=== PATIENT | male | born 1955 | race Caucasian/White ===

== ENCOUNTER 2018-07-01 09:35 | Emergency (ER) | payer OTHER ==
[2018-07-01 09:51] VITALS: BP 116/74; PULSE 51; RESP 18; TEMP 98.6; O2SAT 99
--- NOTE | 2018-07-01 11:03 | CP.PCM.CON ---
History of Present Illness - History of Present Illness History of Present Illness: Podiatry Consult- Dr. Pineda 62 y/o male with PMHx of DM, HTN, HLD seen in ED for consultation on left great toe ulceration. Pt speaks Yakut and is accompanied by his [place]ican-speaking daughter. Pt's daughter states he has had the ulcer on his toe for 4 months, ever since he stepped on a piece of glass. His daughter states he does not have sensation in the feet. States he has been diabetic over 30 years and takes insulin but does not follow a doctor for his diabetes or his loss of sensation. Denies seeing a specialist for his wound care. Daughter admits to caring for the toe ulcer with frequent warm water soaks and application of an antibiotic cream and bandage. Pt states he has tingling and burning that he experiences down the left lower extremity. Denies F/C/N/V/CP/SOB. PSH: open heart surgery All: NKDA SocHx: denies EtOH, cigarette or drug use Review of Systems - Review of Systems All systems: reviewed and no additional remarkable complaints except (per HPI) Past Patient History - Infectious Disease Hx of Infectious Diseases: None - Past Social History Smoking Status: Never Smoked - CARDIAC Hx Hypertension: Yes - ENDOCRINE/METABOLIC Hx Diabetes Mellitus Type 2: Yes - PSYCHIATRIC Hx Substance Use: No - SURGICAL HISTORY Hx Surgeries: Yes Hx Open Heart Surgery: Yes - ANESTHESIA Hx Anesthesia: Yes Hx Anesthesia Reactions: No Hx Malignant Hyperthermia: No Meds Allergies/Adverse Reactions: Allergies Allergy/AdvReac Type Severity Reaction Status Date / Time No Known Allergies Allergy Verified 07/01/18 09:51 Physical Exam - Constitutional Appears: Well, Non-toxic, No Acute Distress - Extremities Exam Additional comments: Lower extremity focused exam: Vasc: DP/PT pulses palpable 2/4 B/L. Temperature gradient warm to cool. CFT < 3 sec to all digits. No pedal edema noted Derm: Open ulceration measuring 1.0cm x 0.8cm x 0.2cm noted to left plantar hallux with hyperkeratotic wound borders and mixed fibrogranular wound base. Wound appears stable with no kandy wound erythema, no fluctuance, no drainage, no malodor. Neuro: Protective sensation grossly diminished Ortho: No gross biomechanical abnormalities noted - Neurological Exam Neurological exam: Alert, Oriented x3 - Psychiatric Exam Psychiatric exam: Normal Affect, Normal Mood Results - Vital Signs Recent Vital Signs: Last Vital Signs Temp 98.6 F 07/01/18 09:45 Pulse 51 L 07/01/18 09:45 Resp 18 07/01/18 09:45 BP 116/74 07/01/18 09:45 Pulse Ox 99 07/01/18 09:45 Assessment & Plan - Assessment and Plan (Free Text) Assessment: 62 y/o male with left diabetic foot ulceration to great toe Plan Pt seen and evaluated in ED Discussed with attending Dr. Pineda X-rays of left foot reviewed - reveal no erosive osseous changes, no acute findings Wound site flushed with saline and dressed with betadine, DSD Advised patient that it is very important for him to seek follow up with a primary doctor for diabetes management as well as follow up with podiatry for diabetic foot care Pt referred for follow up in [facility] with Dr. Pineda on Mondays from 12-3pm
--- NOTE | 2018-07-01 12:12 | C.PDOC ---
History Of Present Illness 62 y/o male,w /PMhx of diabetes, presents to the ER for evaluation of wound to the left great toe. Daughter of patient states that she has been cleaning the wound and applying antibiotic cream to the wound.Denies having fever and chills. Of note, HPI was obtained by daughter of patient because patient does not speak Japanese. Time Seen by Provider: 07/01/18 09:57 Chief Complaint (Nursing): Abnormal Skin Integrity History Per: Family (daughter) History/Exam Limitations: no limitations Onset/Duration Of Symptoms: Days Past Medical History Vital Signs: Last Vital Signs Temp 98.6 F 07/01/18 09:45 Pulse 51 L 07/01/18 09:45 Resp 18 07/01/18 09:45 BP 116/74 07/01/18 09:45 Pulse Ox 99 07/01/18 09:45 - Medical History PMH: HTN Family History: States: Unknown Family Hx - Social History Hx Alcohol Use: No Hx Substance Use: No - Immunization History Hx Tetanus Toxoid Vaccination: No Hx Influenza Vaccination: No Hx Pneumococcal Vaccination: No Review Of Systems Except As Marked, All Systems Reviewed And Found Negative. Constitutional: Negative for: Fever, Chills Skin: Positive for: Other (wound to left great toe) Physical Exam - Physical Exam Appears: Non-toxic, No Acute Distress Skin: Normal Color, Warm, Dry, Other (non-healing ulcer to inferior aspect of of left great toe, no drainage) Head: Atraumatic, Normacephalic Eye(s): bilateral: Normal Inspection Nose: Normal Oral Mucosa: Moist Neck: Supple Chest: Symmetrical Extremity: Normal ROM Neurological/Psych: Oriented x3, Normal Speech, Normal Motor, No Normal Sens ation (decreased sensation to bilateral feet) ED Course And Treatment O2 Sat by Pulse Oximetry: 99 (RA) Pulse Ox Interpretation: Normal Medical Decision Making Medical Decision Making: Plan: --X-Ray-Left Foot Updates: Patient has been evaluated by podiatry resident. Patient has been discharged and instructed to follow up with podiatry. Disposition Counseled Patient/Family Regarding: Diagnosis, Need For Followup, Rx Given - Disposition Referrals: [facility] [Outside] Disposition: HOME/ ROUTINE Disposition Time: 12:10 Condition: STABLE Additional Instructions: Follow up with Podiatry. Instructions: Diabetic Foot Ulcer (DC) Forms: [facility] (Japanese), General Discharge Instructions - POA Present On Arrival: None - Clinical Impression Clinical Impression: Skin ulcer - Scribe Statement The provider has reviewed the documentation as recorded by the Scribe Maria Eugenia ePrez Provider Attestation: All medical record entries made by the Scribe were at my direction and personally dictated by me. I have reviewed the chart and agree that the record accurately reflects my personal performance of the history, physical exam, medical decision making, and the department course for this patient. I have also personally directed, reviewed, and agree with the discharge instructions and disposition.
--- NOTE | 2018-07-01 13:41 | RAD ---
PROCEDURE: Radiographs of the left great toe. Relevant history nonhealing ulcer TECHNIQUE:: AP radiograph of the left foot, with oblique and lateral view of the left great toe. COMPARISON: None. FINDINGS: BONES: No evidence of osteomyelitis. JOINTS: Normal. SOFT TISSUES: Marked soft tissue swelling 1st digit. OTHER FINDINGS: None. IMPRESSION: Soft tissue swelling without acute articular or osseous abnormality.
== END 2018-07-01 12:25 | disposition home or self-care (01) ==
LOC: C.ER 09:35
DX: E11.621 Type 2 diabetes mellitus with foot ulcer (principal); L97.529 Non-pressure chronic ulcer of other part of left foot with unspecified severity; Z79.4 Long term (current) use of insulin

== ENCOUNTER 2018-12-18 06:27 | Day surgery (SDC) | payer OTHER ==
[2018-12-18 06:45] VITALS: RESP 19; TEMP 97.8; O2SAT 98
[2018-12-18 07:30] VITALS: BMI 27.6
[2018-12-18 08:25] VITALS: PULSE 56
[2018-12-18] MEDS ORDERED: Propofol 10 mg/ml Inj (20 ML) ONE ×2 (08:26)
[2018-12-18] MEDS ORDERED: Midazolam 2 MG/2 ML VIAL ONE (08:27)
--- NOTE | 2018-12-18 09:09 | CP.SDSHP ---
Same Day Surgery H & P - History Proposed Procedure: colonoscopy Pre-Op Diagnosis: rectal bleeding - Previous Medical/Surgical History Cardiac: Hypertension, ASHD/CAD, Other (hyhperlipidemai) Endocrine/Metabolic: Diabetes Previous Surgical History: CABG - Allergies Allergies: Allergies No Known Allergies Allergy (Verified 12/18/18 07:20) - Physical Exam Vital Signs: Vital Signs 12/18/18 12/18/18 12/18/18 06:40 06:44 08:20 Temperature 97.8 F 97.8 F Pulse Rate 57 L 57 L 56 L Respiratory 19 19 Rate Blood Pressure 156/68 H 156/168 H O2 Sat by Pulse 98 98 Oximetry Mental Status: Alert & Oriented x3 Neuro: WNL Heart: Other (thoractomy scar) Lungs: WNL GI: WNL - Impression Impression: rectal bleeding Pt. Evaluated Today:Candidate for Anesthesia & Procedure: Yes - Date & Time Date: 12/18/18 Time: 09:09 Short Stay Discharge - Short Stay Discharge Admitting Diagnosis/Reason for Visit: MELENA Disposition: HOME/ ROUTINE
[2018-12-18 10:19] VITALS: BP 128/69
== END 2018-12-18 10:36 | disposition home or self-care (01) ==
LOC: C.ENDO 06:27
PROVIDERS: ATTEND Internal Medicine Gastroenterology
DX: K92.1 Melena (principal); K59.00 Constipation, unspecified; D12.4 Benign neoplasm of descending colon; D12.3 Benign neoplasm of transverse colon; K64.8 Other hemorrhoids
CPT/HCPCS: 45380; 45385; 82948; 88305; J2250; J2704; J3010

== ENCOUNTER 2019-01-20 09:11 | Outpatient (CLI) | payer OTHER | END 2019-01-20 09:12 | disposition home or self-care (01) | LOC: C.CARD 09:11 | DX: R07.9 Chest pain, unspecified (principal) ==